=== PATIENT | male | born 1960 | race Caucasian/White ===

== ENCOUNTER → 2016-08-21 | Outpatient (CLI) | payer BC ==
[~2016-08-21] MED LIST: ACET-24 PO; ASPEC325 PO; CETI10TA84 PO; CLB/200 PO; CLR10 PO; HCTZ/LOSARTAN PO; IBUP-103 PO; LOSA100T26 PO; MULT-506 PO; OMEGCAP2 PO; RXC5 PO; SIMV20TA2 PO; SPIR25TA PO; daily fiber PO
--- NOTE | 2016-08-21 16:07 | DIAGNOSTIC IMAGING REPORT ---
MRI OF THE LEFT KNEE CLINICAL HISTORY: Left knee pain. COMPARISON STUDY: MRI left knee dated 05/16/2016. TECHNIQUE: MRI of the left knee was performed utilizing proton density, T1, and T2-weighted sequences in the axial, sagittal, coronal planes. IV contrast was not administered for this examination. Note that interpretation is suboptimal without plain film correlate. FINDINGS: Menisci: There is tearing of the anterior horn and body of the lateral meniscus. This is similar to previous. There is truncation involving the body and posterior horn of the medial meniscus suggesting partial mastectomy. Degenerative tearing is seen within the Main during the posterior horn. Ligaments: The anterior and posterior cruciate ligaments are intact. The medial and lateral collateral ligaments are within normal limits. Extensor mechanism: The extensor mechanism is intact. Hoffa's fat pad is normal in appearance. Articular cartilage and bone: There are small marginal osteophytes. There is mild (less than 50%) degenerative thinning of the anterior cartilage along the weightbearing surface in the medial compartment. Reactive marrow edema is again seen within the medial tibial plateau. Minimal reactive marrow changes also seen within the anterior aspect of the medial femoral condyle. This is similar to previous. There is particular cartilage in the lateral and patellofemoral compartments appears preserved. Joint effusion: Trace joint fluid is noted. Soft tissues: The musculature surrounding the knee joint is normal in bulk and signal intensity. IMPRESSION: 1. Bilateral meniscal tears as detailed above with findings suggestive of previous partial mastectomy on the right. This is unchanged from 05/16/2016. 2. The cruciate and collateral ligaments are preserved. 3. Mild degenerative cartilage loss with reactive marrow edema in the medial tibial plateau is unchanged. Minimal reactive marrow change is also seen in medial femoral condyle. Electronically signed by: Aureliano Izaguirre M.D. 08/21/2016 4:06 PM Dictated Date/Time: 08/21/2016 4:00 PM
== END | disposition home or self-care (01) ==
LOC: C.MRIBC 14:37
PROVIDERS: ATTEND Orthopaedic Surgery
DX: S83.209A Unspecified tear of unspecified meniscus, current injury, unspecified knee, initial encounter (principal); X58.XXXA Exposure to other specified factors, initial encounter

== ENCOUNTER → 2016-11-03 | Outpatient (CLI) | payer BC ==
[~2016-11-03] MED LIST changes: -LOSA100T26 PO; +LOSA100T33 PO
--- NOTE | 2016-11-03 14:13 | DIAGNOSTIC IMAGING REPORT ---
MRI OF THE RIGHT SHOULDER CLINICAL HISTORY: Right shoulder pain. COMPARISON STUDY: No priors. TECHNIQUE: MRI of the right shoulder was performed utilizing various T1 and T2 weighted sequences in the axial, sagittal, coronal planes. IV contrast was not administered for this examination. Note that interpretation is suboptimal without plain film correlate. The examination is modestly degraded by motion artifact. FINDINGS: Rotator cuff: There is tendinopathy of the supraspinatus tendon. There is degenerative undersurface tearing, which is nearly full-thickness along the anterior margin located approximately 7 mm from the leading edge. This is best seen on sagittal image #6. No full-thickness tear is clearly identified. The infraspinatus tendon appears preserved. The teres minor and subscapularis tendons are intact. There is no subacromial or subdeltoid bursal fluid. The acromioclavicular joint is unremarkable. Biceps tendon: The long head of the biceps tendon is normal in signal intensity and located within the bicipital groove. The anchor is maintained. Labrum: Grossly intact. Shoulder joint: There is no joint effusion. The articular cartilage over the glenoid is well maintained. There is arthritic change with subchondral cyst formation seen within the greater tuberosity of the humeral head. There is no MRI evidence of fracture. Musculature and soft tissues: The musculature of the shoulder is normal in bulk and signal intensity. No atrophy is seen. IMPRESSION: 1. Tendinopathy with a high-grade partial-thickness rim rent tear of the supraspinatous tendon as discussed above. No full-thickness rotator cuff tear is seen. 2. The remainder of the rotator cuff is intact, as is the long head of the biceps tendon. 3. Arthritic change is present within the greater tuberosity of the humeral head with subchondral cyst formation. Electronically signed by: Aureliano Izaguirre M.D. 11/03/2016 2:12 PM Dictated Date/Time: 11/03/2016 2:05 PM
== END | disposition home or self-care (01) ==
LOC: C.MRIBC 13:24
PROVIDERS: ATTEND Orthopaedic Surgery
DX: M75.91 Shoulder lesion, unspecified, right shoulder (principal)

== ENCOUNTER → 2017-01-10 | Outpatient (CLI) | payer BC ==
[~2017-01-10] MED LIST changes: -CETI10TA84 PO; -HCTZ/LOSARTAN PO; +LOSA100T26 PO; -LOSA100T33 PO
[2017-01-10 11:18] LABS: BASO % 0.3 %; BASO ABS # 0.03 K/uL (0-0.2); COMPLETE YES; EOS % 4.2 %; HEMATOCRIT 41.2 % (42-52); IG% 0.2 %; LYMPH % 21.9 %; LYMPH ABS # 2.03 K/uL (1.2-3.4); MEAN CELL VOLUME 90.2 fL (80-100); MEAN CORPUSCULAR HEMOGLOBIN 30.6 pg (25-34); MEAN PLATELET VOLUME 10.3 fL (7.4-10.4); MONO % 6.6 %; NEUT % 66.8 %; PLATELET COUNT 248 K/uL (130-400); RED BLOOD COUNT 4.57 M/uL (4.7-6.1); WHITE BLOOD COUNT 9.27 K/uL (4.8-10.8)
[2017-01-10 11:39] LABS: ALT/SGPT 29 U/L (12-78); BLOOD UREA NITROGEN 29 mg/dl (7-18); BUN/CREATININE RATIO 22.2 (10-20); CALCIUM 9.5 mg/dl (8.5-10.1); CARBON DIOXIDE 28 mmol/L (21-32); CHLORIDE 105 mmol/L (98-107); CHOLESTEROL 180 mg/dl (0-200); GLUCOSE 99 mg/dl (70-99); POTASSIUM 4.2 mmol/L (3.5-5.1); SODIUM 140 mmol/L (136-145)
[2017-01-10 11:44] LABS: ALB/GLOB RATIO 1.1 (0.9-2); ALKALINE PHOSPHATASE 68 U/L (45-117); AST/SGOT 16 U/L (15-37); CHOLESTEROL/HDL RATIO 5.1; FERRITIN 282.2 ng/ml (8.0-388.0); HDL CHOLESTEROL 35 mg/dl; LDL CHOLESTEROL CALCULATED 99 mg/dl; TRIGLYCERIDES 228 mg/dl (0-150); VERY LOW DENSITY LIPOPROT CALC 46 mg/dl
== END | disposition home or self-care (01) ==
LOC: C.LABBC 07:30
PROVIDERS: ATTEND Nurse Practitioner
DX: Z11.59 Encounter for screening for other viral diseases (principal); N28.9 Disorder of kidney and ureter, unspecified; I10 Essential (primary) hypertension; E78.5 Hyperlipidemia, unspecified; D64.9 Anemia, unspecified

== ENCOUNTER 2017-01-23 09:07 | Inpatient (IN) | payer BC ==
[2016-12-22 14:00] VITALS: Ht 177.8 cm; Wt 104.8 kg
--- NOTE | 2016-12-22 14:34 | PAT Medication Instructions ---
Service Date Dec 22, 2016. Current Home Medication List Celecoxib (CeleBREX), 1 CAP PO QAM Hctz/Losartan (Hyzaar 12.5MG/100MG), 1 TAB PO BID Ibuprofen Tab (Advil), 400 MG PO DAILY PRN for Pain Loratadine (Claritin), 10 MG PO QAM Multivitamin (Multivitamin), 1 TAB PO QPM [place]-3 Fatty Acids (Fish Oil), 2 CAP PO QAM Simvastatin (Zocor), 1 TAB PO HS Spironolactone (Aldactone), 12.5 MG PO QAM [daily fiber], 1 TAB PO QAM Medication Instructions For Your Scheduled Surgery - Check with surgeon for instructions: Celecoxib (CeleBREX), 1 CAP PO QAM Ibuprofen Tab (Advil), 400 MG PO DAILY PRN for Pain - Hold the following medications 2 weeks prior to surgery: [place]-3 Fatty Acids (Fish Oil), 2 CAP PO QAM - Hold the following medications the morning of surgery: [daily fiber], 1 TAB PO QAM Spironolactone (Aldactone), 12.5 MG PO QAM Hctz/Losartan (Hyzaar 12.5MG/100MG), 1 TAB PO BID Loratadine (Claritin), 10 MG PO QAM - Hold the following medications as scheduled the night before surgery: Hctz/Losartan (Hyzaar 12.5MG/100MG), 1 TAB PO BID - Take the following medications as scheduled the night before surgery: Simvastatin (Zocor), 1 TAB PO HS Multivitamin (Multivitamin), 1 TAB PO QPM If you have any questions please call us at [phone] or [phone] or [phone]
--- NOTE | 2016-12-22 15:03 | DIAGNOSTIC IMAGING REPORT ---
CHEST 2 VIEWS ROUTINE CLINICAL HISTORY: 56 years-old Male presenting with PAT. TECHNIQUE: PA and lateral views of the chest were obtained. COMPARISON: 05/30/2010. FINDINGS: Cardiomediastinal silhouette normal. Lungs and pleural spaces clear. Mild degenerative changes of the thoracic spine. Upper abdomen normal. IMPRESSION: 1. No acute cardiopulmonary disease. Electronically signed by: Joseph Rodriguez 12/22/2016 3:02 PM Dictated Date/Time: 12/22/2016 3:01 PM
[2016-12-22 15:20] LABS: BASO % 0.4 %; BASO ABS # 0.03 K/uL (0-0.2); COMPLETE YES; EOS % 3.1 %; HEMATOCRIT 39.2 % (42-52); IG% 0.2 %; LYMPH % 18.4 %; LYMPH ABS # 1.53 K/uL (1.2-3.4); MEAN CELL VOLUME 90.1 fL (80-100); MEAN CORPUSCULAR HEMOGLOBIN 30.8 pg (25-34); MEAN CORPUSCULAR HGB CONC 34.2 g/dl (32-36); MEAN PLATELET VOLUME 9.9 fL (7.4-10.4); MONO % 6.4 %; NEUT % 71.5 %; PLATELET COUNT 233 K/uL (130-400); RED BLOOD COUNT 4.35 M/uL (4.7-6.1); WHITE BLOOD COUNT 8.33 K/uL (4.8-10.8)
[2016-12-22 15:29] LABS: PARTIAL THROMBOPLASTIN RATIO 1.1; PROTHROMBIN TIME (PATIENT) 10.7 SECONDS (9.0-12.0)
[2016-12-22 15:31] LABS: BUN/CREATININE RATIO 18.8 (10-20); CALCIUM 10.2 mg/dl (8.5-10.1); CREATININE 1.8 mg/dl (0.60-1.40); POTASSIUM 4.3 mmol/L (3.5-5.1)
--- NOTE | 2017-01-18 18:27 | HISTORY & PHYSICAL EXAMINATION ---
DATE OF ADMISSION: 01/23/2017 CHIEF COMPLAINT: Persistent left knee pain and discomfort. HISTORY OF PRESENT ILLNESS: This is a 56-year-old gentleman, patient of Dr. Bowser, who presents for treatment of his left knee. He has got a several year history of increasing left knee pain and discomfort. He underwent a left knee arthroscopy done by Dr. Bowser back in 12/14/2015. He did okay for a couple weeks and then has had persistent pain and discomfort. It does not really feel like this helped him. He is bothered by medial pain. He has been through extensive conservative treatment including steroid shots and viscosupplementation without any long-term relief. He has worn an cosmetic manager brace, which does seem to help. The only problem is it causes swelling distally. He would like to proceed with more definitive treatment if possible. Once again, the pain is all medial. It is increased with weightbearing. PAST MEDICAL HISTORY: Significant for, 1. Elevated cholesterol. 2. Mild asthma. 3. Gastroesophageal reflux disease. 4. Mild obesity with BMI of 33. PAST SURGICAL HISTORY: Include: 1. Appendectomy. 2. Sinus surgery. 3. Left knee arthroscopy done on 12/14/2015. 4. Left arm fracture. ALLERGIES: SEAFOOD. CURRENT MEDICINES: Include, 1. Losartan twice a day. 2. Simvastatin once a day. 3. Spironolactone half a tablet daily. 4. Celebrex. SOCIAL HISTORY: This is a 56-year-old male. He is a president of [employer]. Fairly active. FAMILY HISTORY: Significant for breast cancer and MS. REVIEW OF SYSTEMS: Negative for diabetes, neurologic problems, vascular problems or bleeding disorders. Denies any chest pain or shortness of breath. No history of DVT or PE. No weight loss. PHYSICAL EXAMINATION: GENERAL: Physical examination reveals a healthy, pleasant, middle-aged male. He looks to be in pretty good health. HEENT: Benign. NECK: Supple. No lymphadenopathy. LUNGS: Clear to auscultation. HEART: Regular rate and rhythm. ABDOMEN: Soft, nontender, and nondistended. EXTREMITIES: Grossly neurovascularly intact except as follows: Examination of the left knee reveals that the patient ambulates in the independently. He limps a little bit on his left side. He is tender over the medial joint line. Small knee effusion. Range of motion 0-120. Pretty good endpoint to his Piero. No pivot. No varus or valgus instability. Karson does cause a little bit of pain and clicking medially. X-RAYS: X-rays of the left knee reveals some fairly mild medial joint space narrowing. The rest of his knee looks pretty good. We did review his MRIs. I reviewed several MRIs, one from August of 2016 and then one from April of last year. It shows a small joint effusion. He has got quite a bit of edema and then medial tibial plateau on both sets of MRI films. Also, signs of previous meniscus tear. 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 It really seemed like this edema in his tibial plateau is likely the source of the majority of his pain and why he did not get better from the knee arthroscopy. PLAN: We talked about treatment. He would really like to be better. We discussed treatment options. I think he is a reasonable candidate for partial knee replacement. We will take him to the operating room and do a left partial knee replacement. The risks and benefits of this procedure were explained to the patient including, but not limited to DVT, PE, , infection, neurologic injury, vascular injury, bleeding problem, pain, limited range of motion, stiffness, failure to relief of symptoms, incomplete relief of symptoms, need for further surgery in the future, fracture, leg length inequality, nerve palsy, dislocation, need for revision surgery, etc. The patient understands and desires to proceed. Informed consent was obtained. The patient had preoperative workup. His creatinine was elevated initially, but he had a recheck, which looks improved and within normal limits. If we get in there, and there is more advanced than what it looks on x-ray, we will do a knee replacement. I think that is extremely unlikely. I will see him back 2 weeks postop. GEOFF
[~2017-01-23] VITALS: Ht 177.8 cm; Wt 104.8 kg
[2017-01-23] VITALS (7 sets, daily range): BP systolic 120–146; BP diastolic 73–90; PULSE 62–75; TEMP 36.4–37; O2SAT 96–100
[~2017-01-23 09:07] MED LIST changes: -ACET-24 PO; +ACETAMINOPHEN 500 MG TAB PO SCH; -ASPEC325 PO; +BUPIVACAINE 0.25% 30 ML VIAL ONE; +BUPIVACAINE 0.5 % 5 MG/1 ML PF 10ML VIAL ONE; +BUPIVACAINE LIPOSOME 266 MG, BUPIVACAINE/EPINEPHRINE INJ 50 ML, SODIUM CHLORIDE 0.9% PF... INFIL SCH; +CEFAZOLIN 2000 MG/60 ML D5W 60 ML IV SCH; +FAMOTIDINE 20 MG TAB PO SCH; +GABAPENTIN 300 MG CAP PO SCH; +LACTATED RINGER'S 1000ML 1,000 ML IV SCH; +LACTATED RINGER'S 1000ML 500 ML IV ONE; +LACTATED RINGER'S 1000ML IV SCH; +METOCLOPRAMIDE HCL 10 MG TAB PO SCH; -RXC5 PO; +SCOPOLAMINE 1.5 MG TDSY TD SCH; +TRANEXAMIC ACID INJ 1,000 MG in SODIUM CHLORIDE 0.9% 100ML 100 ML IV SCH
[2017-01-23] MEDS ORDERED: MIDAZOLAM HCL 1 MG/ML 2ML VIAL ONE (09:16)
--- NOTE | 2017-01-23 10:25 | History & Physical Bridge Note ---
H&P Re-Evaluation Bridge Note: I have examined the patient, reviewed the History & Physical and in the interval since the performance of the History & Physical I have noted the following changes of clinical significance: No changes noted
[2017-01-23] MEDS ORDERED: SODIUM CHLORIDE 0.9% PF 50 ML VIAL ONE (10:29)
[2017-01-23] MEDS ORDERED: BACITRACIN 50000 UNIT VIAL ONE (10:30)
[2017-01-23] MEDS ORDERED: BUPIVACAINE/EPINEPHRINE 0.25% 10 ML VIAL ONE ×2 (10:30→10:37)
[2017-01-23] MEDS ORDERED: BUPIVACAINE LIPOSOME 1/3% 266 MG/20 ML VIAL INFIL ONE (10:30)
[2017-01-23] MEDS ORDERED: ONDANSETRON INJ 2 MG/ML 2 ML VIAL IV PRN ×2 (11:00→12:45)
[2017-01-23] MEDS ORDERED: ATROPINE SULFATE 0.1 MG/ML 5ML SYR IV PRN (11:00)
[2017-01-23] MEDS ORDERED: KETOROLAC TROMETHAMINE 30 MG/ML VIAL IV. PRN (11:00)
[2017-01-23] MEDS ORDERED: HYDROmorphone INJ 2 MG/ML SYR/VIAL IV PRN (11:00)
[2017-01-23] MEDS ORDERED: PHENYLEPHRINE 100MCG/ML 5ML SYR IV PRN (11:00)
[2017-01-23] MEDS ORDERED: EpHEDrine SULFATE INJ 50 MG/ML AMP IV PRN (11:00)
[2017-01-23] MEDS ORDERED: PROPOFOL IV EMULSION 10 MG/ML 20 ML VIAL IV ONE ×3 (11:14→12:03)
[2017-01-23] MEDS ORDERED: LIDOCAINE HCL 2% 2 ML VIAL (20MG/ML) ONE (11:31)
[2017-01-23] MEDS ORDERED: PHENYLEPHRINE 100MCG/ML 5ML SYR ONE (11:51)
--- NOTE | 2017-01-23 12:33 | [facility] Post Operative Brief Note ---
Immediate Operative Summary Operative Date Jan 23, 2017. Pre-Operative Diagnosis Left Knee Medial Compartment DJD Post-Operative Diagnosis Same Procedure(s) Performed Left Knee Arthroplasty Uni Compartment Surgeon Dr. Rancho Marcus Sales And Marketing Specialist Surgeon(s) Mehrdad Hooper PA-C Estimated Blood Loss 20cc Findings Left Knee DJD Fluids (cc crystalloids) 1300 cc Specimens As per Surgeon A. Left Knee Bone and Tissue Drains No Anesthesia Spinal Complication(s) None Disposition Recovery Room / PACU
[2017-01-23] MEDS ORDERED: TAMSULOSIN HCL 0.4 MG CAP PO PRN (12:45)
[2017-01-23] MEDS ORDERED: ZOLPIDEM TARTRATE 5 MG TAB PO PRN (12:45)
[2017-01-23] MEDS ORDERED: DiphenhydrAMINE HCL 50 MG/ML VIAL IV PRN (12:45)
[2017-01-23] MEDS ORDERED: METOCLOPRAMIDE HCL INJ 5 MG/ML 2 ML VIAL IV PRN (12:45)
[2017-01-23] MEDS ORDERED: BISACODYL 10 MG SUPP PR PRN (12:45)
[2017-01-23] MEDS ORDERED: ALUMINUM/MAGNESIUM/SIMETH (MAALOX MAX) 30 ML UDC PO PRN (12:45)
[2017-01-23] MEDS ORDERED: SILVER SULFADIAZINE 1% CR 50 GM JAR EXT PRN (12:45)
[2017-01-23] MEDS ORDERED: MoRPHine SULFATE 2 MG/ML CARP IV PRN (12:45)
[2017-01-23] MEDS ORDERED: MAGNESIUM HYDROXIDE SUSP 30 ML UDC PO PRN (12:45)
--- NOTE | 2017-01-23 13:09 | DIAGNOSTIC IMAGING REPORT ---
LEFT KNEE 1 OR 2 VIEWS ROUTINE CLINICAL HISTORY: Postop study COMPARISON: 11/27/2016 DISCUSSION: There are postsurgical changes of a medial joint compartment hemiarthroplasty. There are no acute fractures. There are overlying skin marilu. There is air within soft tissues consistent with recent surgery. IMPRESSION: Postsurgical changes of a medial joint compartment hemiarthroplasty. Electronically signed by: Ethan Hickey M.D. 01/23/2017 1:07 PM Dictated Date/Time: 01/23/2017 1:06 PM
--- NOTE | 2017-01-23 13:14 | Anesthesiology Progress Note ---
Anesthesia Post Op Note Date & Time Jan 23, 2017 at 13:14 Vital Signs Pain Intensity: 0 Vital Signs Past 12 Hours Date Time Temp Pulse Resp B/P (MAP) Pulse Ox O2 Delivery O2 Flow Rate FiO2 01/23/17 13:05 66 18 120/70 100 Nasal Cannula 2 01/23/17 12:55 71 16 125/69 100 Nasal Cannula 2 01/23/17 12:45 73 14 117/73 100 Nasal Cannula 2 01/23/17 12:38 36 79 16 114/66 98 Oxymask 10 01/23/17 09:49 37 75 18 146/90 96 Room Air Notes Mental Status: alert / awake / arousable, participated in evaluation Pt Amnestic to Procedure: Yes Nausea / Vomiting: adequately controlled Pain: adequately controlled Airway Patency, RR, SpO2: stable & adequate BP & HR: stable & adequate Hydration State: stable & adequate Anesthetic Complications: no major complications apparent
--- NOTE | 2017-01-23 14:32 | OPERATIVE REPORT ---
DATE OF OPERATION: 01/23/2017 PREOPERATIVE DIAGNOSIS: Left knee medial compartment degenerative joint disease. POSTOPERATIVE DIAGNOSIS: Same. PROCEDURE PERFORMED: Left Biomet [place] mobile-bearing partial knee replacement. SURGEON: Dr. Rancho Marcus. FRENCH BINDING FOLDER: Mehrdad Rivera PA-C. COMPLICATIONS: None. ESTIMATED BLOOD LOSS: 20 mL. FLUID REPLACEMENT: 1300 mL crystalloid fluid replacement. TOURNIQUET TIME: 71 minutes at 300 mmHg. ANESTHESIA: Spinal with adductor canal block. DRAINS: None. SPECIMENS: Left knee sent for pathology. OPERATIVE INDICATIONS: The patient is a 56-year-old very active gentleman who has had a several year history of increasing left knee pain and discomfort. He underwent a knee arthroscopy about a year ago, really did not get much relief. He has had several MRIs over the years. He showed persistent edema of the medial tibial plateau. He has been through extensive conservative care including injections and aspirations without adequate relief as well as oral medicines. X-rays and MRI showed mostly just isolated medial compartment DJD. He elected to proceed with operative treatment. OPERATIVE FINDINGS: Operative findings revealed a moderate sized knee joint effusion. He did have some focal grade 4 changes of the medial femoral condyle and far medial aspect of the medial tibial plateau. His patellofemoral joint and the lateral compartment well preserved. His ACL was intact. OPERATIVE IMPLANTS: Operative implants consisted of: 1. Biomet [place] medium sized femoral component. 2. Biomet left medial size C tibial tray. 3. 4 mm mobile bearing insert. OPERATIVE PROCEDURE: The patient taken to the operating room, identified and placed on the operating table in supine position. All contact areas were appropriately padded. IV antibiotics were provided by anesthesia team. A spinal anesthetic and adductor canal block had been provided in the holding area. Shabazz catheter was placed in sterile fashion. Left thigh tourniquet was then placed and left lower extremity was then prepped and draped in the usual sterile fashion. Left leg was elevated and exsanguinated with Esmarch and tourniquet was placed at 300 mmHg. An anterior approach to the knee was then performed through a longitudinal incision extending from the superior medial aspect of the patella to just medial to the tibial tubercle. Sharp dissection was carried down through the subcutaneous tissues down to the level of the extensor mechanism. A medial parapatellar arthrotomy incision was made. Some slight subperiosteal dissection was carried out medially, taking great care to protect the MCL. The fat pad was resected from beneath the patellar tendon. I then examined the lateral compartment, it was well preserved. The trochlea looked well preserved as well. We elected to proceed with a partial knee replacement. The femur was then sized to a size medium. The external tibial alignment jig was then placed in the anterior face of the tibia and hooked to the femoral sizing spoon with a 4G clamp. I then pinned the tibial guide and made the proximal tibial cut. We then sized the tibia to a size C. The intramedullary guide was placed. A medium femoral template was then placed and hooked to the intramedullary guide and the holes were created for the femoral component. The posterior cutting guide was placed and the posterior cut was made. The 0 spigot was used to mill the distal femur. We then trialed the knee and the 4 insert fit most appropriately in flexion and the 1 in extension. The 3 spigot was then placed. We milled the distal femur further. We then trialed the knee and the 4 feeler gauge fit appropriately in both flexion and extension. It was just a slight bit loose, but I felt the 5 was a bit tight. We elected to use these implants. All trial implants were removed. The posterior cutting guide was placed and the posterior osteophyte was removed as well as the anterior femur was milled for the femoral component. The tibial tray was pinned in place and the saw was used to create the defect for the tibial keel. I did excise the medial meniscus. We irrigated the wound extensively. We then trialed the knee with the trial implants and the 4 insert fit most appropriately. Attention was then drawn toward placement of these implants. All implants were removed. The knee was irrigated with copious amounts of pulsatile lavage solution. The single batch of [place] G cement was mixed. A left medial size C tibial tray, a medial sized femoral component were then cemented in place and a 4 feeler gauge was placed and the knee was brought out into about 30 degrees short of full extension until cement hardened. A final cement check was then performed. I irrigated the wound extensively. We trialed the knee one more time and I elected to use the 4 insert. The 4 mm insert was placed. The knee was stable and felt appropriately balanced. Attention was then drawn toward closing. The wound was irrigated with copious amounts of pulsatile lavage solution. I did inject locally with 100 mL of a combination of 20 mL of Exparel, 30 mL of normal saline, 50 mL of 0.25% Marcaine with epinephrine. The patient did receive 1 gram of tranexamic acid. The tourniquet was then let down for final tourniquet time of 71 minutes. Hemostasis was assured with use of electrocautery. The extensor mechanism was then closed with #1 Vicryl suture in a [id number] fashion. The subcutaneous tissues were then closed with 2-0 Dexon suture in a buried interrupted fashion. Skin was closed skin marilu. Leg was then cleaned and dried and a sterile dressing of Xeroform, 4 x 4, sterile cast padding and Ayo bandage were applied. The patient then transferred to the recovery room in stable condition. The patient tolerated the procedure well with no complications. All needle and sponge counts were correct at the end of the operation. I attest to the content of the Intraoperative Record and any orders documented therein. Any exception s are noted below.
[2017-01-23] MEDS: D5W AND 1/2NSS + 20MEQ KCL 1,000 ML IV SCH ×2 (14:36→21:29)
[2017-01-23] MEDS: ACETAMINOPHEN 500 MG TAB PO SCH ×2 (14:56→21:27)
[2017-01-23] MEDS: CHECK SCOPOLAMINE PATCH PLACEMENT SCH ×2 (15:28→23:38)
[2017-01-23] MEDS: KETOROLAC TROMETHAMINE 30 MG/ML VIAL IV. SCH ×2 (15:28→21:28)
[2017-01-23] MEDS ORDERED: TRANEXAMIC ACID INJ 1,000 MG in SODIUM CHLORIDE 0.9% 100ML 100 ML IV SCH (18:00)
[2017-01-23] MEDS: OXYCODONE HCL IR 5 MG TAB (IMMEDIATE RELEASE) PO PRN ×2 (18:59→23:37)
[2017-01-23] MEDS: CEFAZOLIN IV 2,000 MG in DEXTROSE 5% 50ML 50 ML IV SCH (19:00)
[2017-01-23] MEDS: FERROUS GLUCONATE 324 MG TAB PO SCH (19:00)
--- NOTE | 2017-01-23 19:54 | PROGRESS NOTE ---
DATE: 01/23/2017 SUBJECTIVE: A 56-year-old gentleman postop from a left partial knee replacement. He is doing well. Very little pain in his leg. No chest pain or shortness of breath. Not feeling dizzy or lightheaded. OBJECTIVE: VITAL SIGNS: Temperature 36.4. Vital signs stable. GENERAL: Reveals a healthy, pleasant, middle-aged male. He is sitting up in bed and talking with his . He looks pretty comfortable. LUNGS: Clear to auscultation. HEART: Regular rate and rhythm. ABDOMEN: Soft, nontender, nondistended. EXTREMITIES: Grossly neurovascularly intact except as follows: Examination of the left lower extremity reveals the leg to be well aligned. Dressing is clean, dry, and intact. He can dorsiflex and plantarflex his foot appropriately. He is neurologically intact. X-RAYS: X-rays of the left knee from recovery room reviewed. It shows a left partial knee replacement. The components looked to be in good position. No signs of problems. ASSESSMENT: A 56-year-old gentleman postop from a left knee replacement, doing well. Pain is controlled. He is neurologically intact. PLAN: 1. DVT prophylaxis including thigh-high TEDs, SCDs, and aspirin twice a day. 2. PT/OT. Weightbearing as tolerated. Left total knee protocol. 3. Pain control, doing well with current pain regimen. 4. IV antibiotics x24 hours. 5. Disposition: Plan to discharge to home with some home health once adequately recovered. GEOFF
[2017-01-23] MEDS ORDERED: MULTIVITAMIN TAB PO SCH (21:00)
[2017-01-23] MEDS ORDERED: SENNA 8.6 MG TAB PO SCH (21:00)
[2017-01-23] MEDS ORDERED: SIMVASTATIN 20 MG TAB PO SCH (21:00)
[2017-01-23] MEDS ORDERED: RXC5 PO (21:23)
[2017-01-23] MEDS ORDERED: ASPEC325 PO (21:23)
[2017-01-23] MEDS ORDERED: ACET-24 PO (21:23)
[2017-01-23] MEDS: DOCUSATE SODIUM 100 MG CAP PO SCH (21:24)
[2017-01-23] MEDS: ASPIRIN 325 MG ECTAB PO SCH (21:25)
[2017-01-23] MEDS: LOSARTAN POTASSIUM 50 MG TAB PO SCH (21:26)
--- NOTE | 2017-01-23 21:26 | Discharge Instructions ---
Discharge Instructions Date of Service Jan 23, 2017. Admission Reason for Admission: Left Knee Degenerative Joint Disease Discharge Discharge Diagnosis / Problem: Left Partial Knee Replacement Discharge Goals Goal(s): Decrease discomfort, Improve function, Increase independence, Improve disease control, Therapeutic intervention Activity Recommendations Activity Limitations: per Instructions/Follow-up section Weightbearing Status: Left weightbearing . Instructions / Follow-Up Instructions / Follow-Up ACTIVITY RECOMMENDATIONS: Physical Therapy: * You will go to physical therapy three times each week for four to six weeks after your surgery in order to regain your knee range of motion and to retrain your knee to work properly. * It is just as important to make sure you are getting your knee perfectly straight as it is to regain your knee bend. * Taking a pain pill an hour before therapy can help you have a more productive and comfortable therapy session. Home Exercise: * You were shown a series of exercises (heel props, heel slides, etc.) in the hospital. Do these exercises three to four times each day including the exercises you were shown in physical therapy. Walking: * Get up and walk several times each day. For the first four weeks, try not to stand or walk for more than one hour at a time. If you do stand or walk for more than one hour, you will not hurt anything, but your knee and leg will likely swell. * As you feel comfortable, you may change from the walker or crutches to a cane and then to independent walking. MEDICATIONS: New Medicine: * You will likely be taking one or more of these medications: 1. Oxycodone - A quick and shorter-acting pain medication. Take one to two tablets every four to six hours to lessen your pain. 2. Aspirin - Thins your blood to lessen the chance of forming a blood clot. * The most common side effects of pain medicine and iron are nausea and constipation. If nausea or constipation is too much of a problem or if you have any questions about your new medicines or doses, call [facility] at . We will try to help you manage these issues. VERY IMPORTANT TO READ AND REVIEW" Pain: * The immediate post-operative period after knee replacement surgery is often quite painful. * You are given a prescription for pain medicine. You should take it, as directed, when you need it, especially before physical therapy and before going to bed. Pain that interferes with sleep is very common and can last several months. * You will likely need pain medicine for the first four to six weeks. It will not stop all of the pain. The pain will lessen and as you feel better, you may change to milder pain medicine such as Tylenol. * The most common side effects of pain medicine are nausea and constipation, so don't take more than you need. SPECIAL CARE INSTRUCTIONS: TEDs/Elastic Stockings: * The white elastic stockings help limit swelling and prevent blood clots from forming in your legs. The more you wear them, the more they work. * Wear them for six weeks after knee replacement surgery and four weeks after partial knee replacement. Prevention of Infection: * Take antibiotics one hour before any dental cleaning, dental work, urological procedure, gastrointestinal procedure or any invasive surgery in order to prevent your new joint from getting infected. * You may get the antibiotics from the doctor performing the procedure or you may call our office at before and we will call in a prescription to the pharmacy of your choice. Things to Watch For: * Drainage from the incision site that occurs more than one week after your surgery. * Severely increased knee/leg pain or swelling. * Increased redness at the incision site. * Fever above 102 degrees Fahrenheit. * Unusual chest pain or shortness of breath. * Unusual pain or burning with urination. Call [facility] at with any of the above problems or if you have any questions about your medicines or recovery. FOLLOW UP VISIT: Make an appointment to see your doctor for approximately two weeks after surgery for a progress check and staple removal by calling the office at . Current Hospital Diet Patient's current hospital diet: Regular Diet Discharge Diet Recommended Diet: Regular Diet Procedures Procedures Performed: Left Knee Arthroplasty Uni Compartment Pending Studies Studies pending at discharge: no Laboratory Results Lipid Panel Test 01/10/17 07:34 Range/Units Triglycerides Level 228 H 0-150 mg/dl Cholesterol Level 180 0-200 mg/dl HDL Cholesterol 35 mg/dl Cholesterol/HDL Ratio 5.1 LDL Cholesterol, Calculated 99 mg/dl Medical Emergencies . Who to Call and When: Medical Emergencies: If at any time you feel your situation is an emergency, please call 911 immediately. . Non-Emergent Contact Non-Emergency issues call your: Surgeon . "Provider Documentation" section prepared by Rancho Marcus. . VTE Core Measure Inpt VTE Proph given/why not?: Other Anticoagulation, T.E.D. Stockings, SCD's
[2017-01-23] MEDS: TAPENTADOL ER 50 MG TABCR PO SCH (21:39)
[2017-01-24] MEDS: CEFAZOLIN IV 2,000 MG in DEXTROSE 5% 50ML 50 ML IV SCH (02:01)
[2017-01-24] MEDS: KETOROLAC TROMETHAMINE 30 MG/ML VIAL IV. SCH ×2 (03:58→08:56)
[2017-01-24 03:59] VITALS: BP 121/77; PULSE 62; TEMP 36.4; O2SAT 95
[2017-01-24] MEDS: ACETAMINOPHEN 500 MG TAB PO SCH (05:58)
[2017-01-24] MEDS: D5W AND 1/2NSS + 20MEQ KCL 1,000 ML IV SCH (05:58)
--- NOTE | 2017-01-24 07:39 | PROGRESS NOTE ---
DATE: 01/24/2017 SUBJECTIVE: A 56-year-old gentleman postop day #1 from a left partial knee replacement. He is doing pretty well. Soreness with ROM. No chest pain or shortness of breath. Not feeling dizzy or lightheaded. OBJECTIVE: VITAL SIGNS: Temperature is 36.4. Vital signs stable. GENERAL: Physical examination reveals a healthy, pleasant, middle-aged male. He is lying in bed and looks quite comfortable. EXTREMITIES: Examination of the left leg reveals the leg to be well aligned. Dressing is clean, dry, and intact. He can dorsiflex and plantarflex his foot appropriately. He has got good straight leg raise. ASSESSMENT: A 56-year-old gentleman postop day #1 from a left partial knee replacement, doing well. Pain is controlled. He is neurologically intact. PLAN: 1. DVT prophylaxis including thigh-high TEDs, SCDs, and aspirin twice a day. 2. PT/OT. Weightbear as tolerated. Left total knee protocol. 3. Pain control. Doing well with current pain regimen. We will use aspirin, Tylenol, and NSAIDs and only oxycodone as needed. 4. Disposition: Plan to discharge to home. He is going to do outpatient therapy. [facility]
[2017-01-24] MEDS: CHECK SCOPOLAMINE PATCH PLACEMENT SCH (07:42)
[2017-01-24] MEDS: OXYCODONE HCL IR 5 MG TAB (IMMEDIATE RELEASE) PO PRN (07:42)
[2017-01-24 07:43] VITALS: BP 140/84; PULSE 55; TEMP 36.8; O2SAT 95
--- NOTE | 2017-01-24 07:49 | Anesthesiology Progress Note ---
Anesthesia Post Op Note Date & Time Jan 24, 2017 at 07:48 Vital Signs Pain Intensity: 4.0 Vital Signs Past 12 Hours Date Time Temp Pulse Resp B/P (MAP) Pulse Ox O2 Delivery O2 Flow Rate FiO2 01/24/17 07:43 36.8 55 14 140/84 (102) 95 Room Air 01/24/17 03:59 36.4 62 16 121/77 (92) 95 Room Air 01/23/17 23:38 Room Air 01/23/17 23:32 36.5 65 15 123/73 (90) 97 Room Air Notes Mental Status: alert / awake / arousable Pt Amnestic to Procedure: No Nausea / Vomiting: adequately controlled Pain: adequately controlled Airway Patency, RR, SpO2: stable & adequate BP & HR: stable & adequate Hydration State: stable & adequate Neuraxial Anesthesia: sensory block resolved pt has slight recall during MAC pt was not uncomfortable;
[2017-01-24 08:00] VITALS: O2SAT 95
[2017-01-24] MEDS: FERROUS GLUCONATE 324 MG TAB PO SCH (08:49)
[2017-01-24] MEDS: DOCUSATE SODIUM 100 MG CAP PO SCH (08:50)
[2017-01-24] MEDS: LOSARTAN POTASSIUM 50 MG TAB PO SCH (08:51)
[2017-01-24] MEDS: ASPIRIN 325 MG ECTAB PO SCH (08:52)
[2017-01-24] MEDS: TAPENTADOL ER 50 MG TABCR PO SCH (08:55)
[2017-01-24] MEDS ORDERED: PANTOprazole SOD 40 MG TAB PO SCH (09:00)
[2017-01-24] MEDS ORDERED: MULTIVITAMIN TAB PO SCH (09:00)
[2017-01-24] MEDS ORDERED: HYDROCHLOROTHIAZIDE 25 MG TAB PO SCH (09:00)
[2017-01-24] MEDS ORDERED: LORATADINE 10 MG TAB PO SCH (09:00)
[2017-01-24] MEDS ORDERED: SPIRONOLACTONE 25 MG TAB PO SCH (09:00)
[2017-01-24] MEDS ORDERED: DAILY FIBER PO SCH (09:00)
[2017-01-24 09:20] VITALS: BP 140/84; PULSE 55; TEMP 36.8; O2SAT 95
[2017-01-24 09:29] VITALS: BP 148/80; PULSE 73; O2SAT 95
--- NOTE | 2017-01-30 16:10 | DISCHARGE SUMMARY ---
ADMITTING PHYSICIAN AND SURGEON: Rancho Marcus MD ADMITTING DIAGNOSIS: Left knee medial compartment degenerative joint disease. SURGERY PERFORMED: Left partial knee replacement. SECONDARY DIAGNOSES: Elevated cholesterol, mild asthma, gastroesophageal reflux disease, and mild obesity. CONSULTS: None obtained. HISTORY AND PHYSICAL EXAMINATION: Well documented in the patient's chart. HOSPITAL COURSE: The patient was admitted on 01/23/2017 and underwent unicompartmental arthroplasty. He tolerated the procedure well. There were no complications. He was transferred to the PACU postoperatively and later to the orthopedic floor for further care. He was given Ancef for antibiotic prophylaxis and REID stockings, SCDs and aspirin for DVT prophylaxis. Vital signs were monitored during his hospital stay and remained stable. There were no complications. He did not require any blood transfusions. By postoperative day #1, he was tolerating a general diet and pain was controlled with oral pain medicine. He was participating in physical therapy and had no signs or symptoms of deep vein thrombosis. On postoperative day #1, he was discharged home. He was given printed discharge instructions including new prescriptions for extra strength Tylenol, aspirin 325 mg b.i.d., oxycodone, continue his home medicines, continue physical therapy, weightbearing as tolerated, and REID stockings. Follow up in 10-12 days or sooner if there are any problems or concerns.
== END 2017-01-24 10:09 | disposition home or self-care (01) | DRG 470 ==
LOC: C.ACU 09:07 → C.3E 09:40 → EDBEDREQ 12:49 → ENRESERV 13:35
PROVIDERS: ADMIT Orthopaedic Surgery Sports Medicine; ATTEND Orthopaedic Surgery Sports Medicine
PROC: 0SRD0J9 Replacement of Left Knee Joint with Synthetic Substitute, Cemented, Open Approach (ICD-10-PCS; principal; 2017-01-23 11:15)
DX: M17.12 Unilateral primary osteoarthritis, left knee (principal); E78.00 Pure hypercholesterolemia, unspecified; J45.909 Unspecified asthma, uncomplicated; E66.9 Obesity, unspecified; Z68.33 Body mass index [BMI] 33.0-33.9, adult; Z79.899 Other long term (current) drug therapy; Z79.1 Long term (current) use of non-steroidal anti-inflammatories (NSAID)

== ENCOUNTER → 2017-05-09 | Outpatient (CLI) | payer BC ==
[~2017-05-09] MED LIST changes: +ACET-24 PO; -ACETAMINOPHEN 500 MG TAB PO SCH; +ASPEC325 PO; -BUPIVACAINE 0.25% 30 ML VIAL ONE; -BUPIVACAINE 0.5 % 5 MG/1 ML PF 10ML VIAL ONE; -BUPIVACAINE LIPOSOME 266 MG, BUPIVACAINE/EPINEPHRINE INJ 50 ML, SODIUM CHLORIDE 0.9% PF... INFIL SCH; -CEFAZOLIN 2000 MG/60 ML D5W 60 ML IV SCH; -FAMOTIDINE 20 MG TAB PO SCH; -GABAPENTIN 300 MG CAP PO SCH; -LACTATED RINGER'S 1000ML 1,000 ML IV SCH; -LACTATED RINGER'S 1000ML 500 ML IV ONE; -LACTATED RINGER'S 1000ML IV SCH; -LOSA100T26 PO; +LOSA100T33 PO; -METOCLOPRAMIDE HCL 10 MG TAB PO SCH; +RXC5 PO; -SCOPOLAMINE 1.5 MG TDSY TD SCH; -TRANEXAMIC ACID INJ 1,000 MG in SODIUM CHLORIDE 0.9% 100ML 100 ML IV SCH
[2017-05-09 11:58] LABS: URINE APPEARANCE CLEAR (CLEAR); URINE BILIRUBIN NEG (NEG); URINE COLOR YELLOW; URINE NITRITE NEG (NEG); URINE SPECIFIC GRAVITY 1.022 (1.000-1.030); UROBILINOGEN NEG (NEG)
[2017-05-09 12:01] LABS: MANUAL MICROSCOPIC REQUIRED? NO; REVIEW REQ? YES
== END | disposition home or self-care (01) ==
LOC: C.LABSPEC 11:06
PROVIDERS: ATTEND Nurse Practitioner Family
DX: R50.9 Fever, unspecified (principal)